=== PATIENT | male | born 1950 | race Caucasian/White ===

== ENCOUNTER 2016-12-06 10:35 | Outpatient (CLI) | payer OTHER ==
[2016-12-06 11:15] LABS: eGFR (African) > 60; eGFR (Non-African) > 60
== END 2016-12-06 10:36 ==
LOC: LAB 10:35
PROVIDERS: ATTEND Family Medicine
DX: I10 Essential (primary) hypertension (principal)
CPT/HCPCS: 36415; 80053; 80061

== ENCOUNTER 2018-03-23 08:43 | Outpatient (CLI) | payer OTHER ==
[2018-03-23 17:20] LABS: TOTAL PROTEIN 6.6 g/dL (6.0-8.5)
== END 2018-03-23 08:44 ==
LOC: LAB 08:43
PROVIDERS: ATTEND Family Medicine
DX: Z00.00 Encounter for general adult medical examination without abnormal findings (principal); Z12.5 Encounter for screening for malignant neoplasm of prostate; E78.00 Pure hypercholesterolemia, unspecified; H81.03 Meniere's disease, bilateral
CPT/HCPCS: 36415; 80053; 80061; 84153

== ENCOUNTER 2019-03-28 09:50 | Outpatient (CLI) | payer OTHER ==
[2019-03-28 10:40] LABS: eGFR (Non-African) > 60
[2019-03-28 10:41] LABS: HDL 41 mg/dL (>40)
== END 2019-03-28 09:55 ==
LOC: LAB 09:50
PROVIDERS: ATTEND Family Medicine
DX: Z12.5 Encounter for screening for malignant neoplasm of prostate (principal); I10 Essential (primary) hypertension
CPT/HCPCS: 36415; 80053; 80061; 84153